=== PATIENT | male | born 1995 | race American Indian/Alaskan Native ===

== ENCOUNTER 2021-03-04 10:29 | Emergency (ER) | payer SELFPAY ==
[2021-03-04 11:00] VITALS: BP 154/96
[2021-03-04] MEDS ORDERED: KETOROLAC 30 MG/1 ML INJ IV ONE (11:43)
--- NOTE | 2021-03-04 11:44 | Emergency Department Report ---
ED General Adult HPI - General Chief complaint: Headache Stated complaint: LOW BACK PAIN Time Seen by Provider: 03/04/21 11:37 Source: patient Mode of arrival: Stretcher Limitations: No Limitations - History of Present Illness Initial comments: 25-year-old -[place] male with a past medical history of asthma presents to the ER today with complaints of generalized body aches but worse in his lower back and headache. Patient states that his symptoms started last night. Patient states that he has been having generalized body aches but worse in his lower back and is also having a headache with it. He states that the lower back pain radiates down into his right thigh, but he is also having pain in his lower abdomen and having hematuria, dysuria and urinary frequency. He states that he did have subjective fever last night and last night he does have multiple episodes of coughing but no cough today. He denies any particular injury to his back. He denies any strenuous activity. He denies any URI symptoms, wheezing, chest pain or shortness of breath. He denies any lower extremity numbness, tingling, bowel or bladder incontinence. He denies any vomiting or diarrhea. He denies any known COVID-19 contacts or any other ill contacts or recent travel. Patient states that he drinks socially. He does admit to tobacco and marijuana use but denies any other illicit drug use. MD Complaint: Generalized body aches/low back pain/hematuria -: Last night - Related Data Previous Rx's Medication Instructions Recorded Last Taken Type Ketorolac [Toradol] 10 mg PO Q6H PRN #20 tablet 03/04/21 Unknown Rx methOCARBAMOL [Robaxin TAB] 500 mg PO Q6H PRN #30 tablet 03/04/21 Unknown Rx Allergies Allergy/AdvReac Type Severity Reaction Status Date / Time No Known Allergies Allergy Unverified 03/04/21 10:52 ED Review of Systems ROS: Stated complaint: LOW BACK PAIN Other details as noted in HPI Comment: All other systems reviewed and negative Constitutional: denies: chills, fever Eyes: denies: eye pain, eye discharge, vision change ENT: denies: ear pain, throat pain, dental pain, hearing loss, epistaxis, congestion Respiratory: cough. denies: shortness of breath, SOB with exertion, SOB at rest, wheezing Cardiovascular: denies: chest pain, palpitations, dyspnea on exertion, orthopnea, edema, syncope, paroxysmal nocturnal dyspnea Gastrointestinal: abdominal pain. denies: nausea, vomiting, diarrhea, constipation, hematemesis, hematochezia Genitourinary: dysuria, frequency, hematuria Musculoskeletal: back pain. denies: joint swelling, arthralgia, myalgia Skin: denies: rash, lesions, change in color, change in hair/nails, pruritus Neurological: headache. denies: weakness, numbness, paresthesias, confusion, abnormal gait, vertigo Psychiatric: denies: anxiety, depression, auditory hallucinations, visual hallucinations, homicidal thoughts, suicidal thoughts Hematological/Lymphatic: denies: easy bleeding, easy bruising, swollen glands ED Past Medical Hx - Past Medical History Previous Medical History?: Yes Hx Asthma: Yes - Surgical History Past Surgical History?: No - Medications Home Medications: Home Medications Medication Instructions Recorded Confirmed Last Taken Type Ketorolac [Toradol] 10 mg PO Q6H PRN #20 tablet 03/04/21 Unknown Rx methOCARBAMOL [Robaxin TAB] 500 mg PO Q6H PRN #30 tablet 03/04/21 Unknown Rx ED Physical Exam - General Limitations: No Limitations General appearance: alert, in distress (Patient appears uncomfortable secondary to pain and restless in triage) - Head Head exam: Present: atraumatic, normocephalic, normal inspection - Eye Eye exam: Present: normal appearance, PERRL, EOMI Pupils: Present: normal accommodation - ENT ENT exam: Present: normal exam, mucous membranes moist - Neck Neck exam: Present: normal inspection, full ROM - Respiratory Respiratory exam: Present: normal lung sounds bilaterally. Absent: respiratory distress, wheezes, rales, rhonchi - Cardiovascular Cardiovascular Exam: Present: regular rate, normal rhythm, normal heart sounds - GI/Abdominal GI/Abdominal exam: Present: soft. Absent: distended, tenderness, guarding, rebound - Extremities Exam Extremities exam: Present: normal inspection, tenderness (Mild tenderness to palpation to right thigh area). Absent: calf tenderness - Back Exam Back exam: Present: normal inspection, CVA tenderness (R), paraspinal tenderness (Mild bilateral paraspinal muscle tenderness lower lumbar area) - Neurological Exam Neurological exam: Present: alert, oriented X3, CN II-XII intact, normal gait - Psychiatric Psychiatric exam: Present: normal affect, normal mood - Skin Skin exam: Present: intact ED Course Vital Signs 03/04/21 10:59 Temperature 99.6 F Pulse Rate 80 Respiratory 20 Rate Blood Pressure 154/96 [Right] O2 Sat by Pulse 100 Oximetry ED Medical Decision Making - Lab Data Result diagrams: 03/04/21 12:16 03/04/21 12:16 - Radiology Data Radiology results: report reviewed Patient: BHAVNA FREY MR#: [id number] : 1995 Acct:[id number] Age/Sex: 25 / M ADM Date: 03/04/21 Loc: ED Attending Dr: Ordering Physician: RICK PADILLA Date of Service: 03/04/21 Procedure(s): XR chest routine 2V Accession Number(s): [id number] cc: RICK PADILLA Fluoro Time In Minutes: CHEST 2 VIEWS INDICATION / CLINICAL INFORMATION: Cough/body aches. COMPARISON: None available. FINDINGS: SUPPORT DEVICES: None. HEART / MEDIASTINUM: No significant abnormality. LUNGS / PLEURA: No significant pulmonary or pleural abnormality. No pneumothorax. ADDITIONAL FINDINGS: No significant additional findings. IMPRESSION: 1. No acute findings. Signer Name: Hima Jesus MD Signed: 03/04/2021 12:10 PM Workstation Name: [id number] Transcribed By: JUAN A Dictated By: Hima Jesus MD Electronically Authenticated By: Hima Jesus MD Signed Date/Time: 03/04/21 1210 DD/ 1210 TD/TT: Patient: BHAVNA FREY MR#: [id number] : 1995 Acct:[id number] Age/Sex: 25 / M ADM Date: 03/04/21 Loc: ED Attending Dr: Ordering Physician: RICK PADILLA Date of Service: 03/04/21 Procedure(s): CT abdomen pelvis wo con Accession Number(s): [id number] cc: RICK PADILLA CT ABDOMEN AND PELVIS WITHOUT CONTRAST INDICATION / CLINICAL INFORMATION: back pain/hematuria. TECHNIQUE: Axial CT images were obtained through the abdomen and pelvis without IV contrast. All CT scans at this location are performed using CT dose reduction for ALARA by means of automated exposure control. COMPARISON: None available. FINDINGS: LOWER CHEST: No significant abnormality. LIVER: No significant abnormality. GALLBLADDER: No significant abnormality. BILE DUCTS: No significant abnormality. PANCREAS: No significant abnormality. SPLEEN: No significant abnormality. ADRENALS: No significant abnormality. RIGHT KIDNEY / URETER: No significant abnormality. LEFT KIDNEY / URETER: No significant abnormality. STOMACH / SMALL BOWEL: No significant abnormality. COLON: No significant abnormality. APPENDIX: No significant abnormality. PERITONEUM: No free fluid. No free air. No fluid collection. LYMPH NODES: No significant adenopathy. VASCULAR STRUCTURES: No significant abnormality. URINARY BLADDER: No significant abnormality. REPRODUCTIVE ORGANS: No significant abnormality. ADDITIONAL FINDINGS: None. SKELETAL SYSTEM: No significant abnormality. IMPRESSION: Negative for obstruction or localized inflammation. Signer Name: Karlos Sexton MD Signed: 03/04/2021 12:27 PM Workstation Name: [id number] Transcribed By: GERARDO Dictated By: Karlos Sexton MD Electronically Authenticated By: Karlos Sexton MD Signed Date/Time: 03/04/21 122 DD/ 1223 TD/TT: - Medical Decision Making Labs including CT abdomen pelvis noncontrast, and chest x-ray [id number] today shows no acute abnormalities. He does not appear to be in any acute pain or respiratory distress. He currently not toxic or ill-appearing and he appears hydrated. He is mentally stable and is neurologically intact. Discussed lab and imaging results with patient. This time his work-up does not show serious UTI, kidney stone, pneumonia, meningitis, cord compression syndrome, sepsis or any other acute emergent conditions warranting additional testing, admission, specialist consult or transfer at this time. I did recommend to patient that he get an outpatient Covid test as some of his symptoms symptoms could be related to Covid. Patient expressed understanding of all instructions and agree with plan. Patient was stable at time of discharge. Critical care attestation.: If time is entered above; I have spent that time in minutes in the direct care of this critically ill patient, excluding procedure time. ED Disposition Clinical Impression: Low back pain, Headache, Viral syndrome Disposition: DC-01 TO HOME OR SELFCARE Is pt being admited?: No Does the pt Need Aspirin: No Condition: Stable Instructions: Acute Back Pain, Adult, Viral Illness, Adult, General Headache Without Cause, [id number] Additional Instructions: I recommend that you take the Toradol and the muscle relaxant as prescribed. I also recommend that you get an outpatient COVID-19 test. You may want to quarantine until you get the results of your COVID-19 test. Drink lots of flui ds. Recommend that you take a daily multivitamin which includes vitamin C vitamin D and zinc. Follow-up closely with your primary care doctor. Return to the ER if your symptoms changes or worsens in any way. Prescriptions: methOCARBAMOL [Robaxin TAB] 500 mg PO Q6H PRN #30 tablet PRN Reason: Pain Ketorolac [Toradol] 10 mg PO Q6H PRN #20 tablet PRN Reason: Pain Referrals: [facility] [Provider Group] - 3-5 Days Forms: Work/School Release Form(ED) Time of Disposition: 15:10
--- NOTE | 2021-03-04 12:15 | XRay Report ---
CHEST 2 VIEWS INDICATION / CLINICAL INFORMATION: Cough/body aches. COMPARISON: None available. FINDINGS: SUPPORT DEVICES: None. HEART / MEDIASTINUM: No significant abnormality. LUNGS / PLEURA: No significant pulmonary or pleural abnormality. No pneumothorax. ADDITIONAL FINDINGS: No significant additional findings. IMPRESSION: 1. No acute findings. Signer Name: Hima Jesus MD Signed: 03/04/2021 12:10 PM Workstation Name: [id number]
--- NOTE | 2021-03-04 12:31 | Cat Scan Report ---
CT ABDOMEN AND PELVIS WITHOUT CONTRAST INDICATION / CLINICAL INFORMATION: back pain/hematuria. TECHNIQUE: Axial CT images were obtained through the abdomen and pelvis without IV contrast. All CT scans at this location are performed using CT dose reduction for ALARA by means of automated exposure control. COMPARISON: None available. FINDINGS: LOWER CHEST: No significant abnormality. LIVER: No significant abnormality. GALLBLADDER: No significant abnormality. BILE DUCTS: No significant abnormality. PANCREAS: No significant abnormality. SPLEEN: No significant abnormality. ADRENALS: No significant abnormality. RIGHT KIDNEY / URETER: No significant abnormality. LEFT KIDNEY / URETER: No significant abnormality. STOMACH / SMALL BOWEL: No significant abnormality. COLON: No significant abnormality. APPENDIX: No significant abnormality. PERITONEUM: No free fluid. No free air. No fluid collection. LYMPH NODES: No significant adenopathy. VASCULAR STRUCTURES: No significant abnormality. URINARY BLADDER: No significant abnormality. REPRODUCTIVE ORGANS: No significant abnormality. ADDITIONAL FINDINGS: None. SKELETAL SYSTEM: No significant abnormality. IMPRESSION: Negative for obstruction or localized inflammation. Signer Name: Karlos Sexton MD Signed: 03/04/2021 12:27 PM Workstation Name: [id number]
[2021-03-04 12:41] LABS: Hematocrit 44.2 % (35.5-45.6); Mean Corpuscular HGB Conc 34 % (32-34); Mean Corpuscular Volume 93 fl (84-94); Platelet Count 186 K/mm3 (140-440); Red Blood Count 4.74 M/mm3 (3.65-5.03); Red Cell Distribution Width 13.6 % (13.2-15.2)
[2021-03-04 13:01] LABS: Alanine Aminotransferase 19 units/L (7-56); Albumin 4.9 g/dL (3.9-5); BUN/Creatinine Ratio 6; Blood Urea Nitrogen 8 mg/dL (9-20); Hemolysis Index 6
[2021-03-04 14:39] LABS: Mucus,Urine FEW /HPF
[2021-03-04 14:47] LABS: Bilirubin,Urine NEG (Negative); Blood,Urine NEG (Negative); Color,Urine Yellow (Yellow); Protein,Urine <15 mg/dL mg/dL (Negative)
[2021-03-04 16:52] LABS: Total Cells Counted 100
[2021-03-04 16:53] LABS: RBC Morphology Normal
== END 2021-03-04 15:56 | disposition home or self-care (01) ==
LOC: ED 10:29
DX: M54.5 Low back pain (principal); B34.9 Viral infection, unspecified; R51.9 Headache, unspecified; J45.909 Unspecified asthma, uncomplicated; Z79.899 Other long term (current) drug therapy
CPT/HCPCS: 36415; 71046; 74176; 80053; 81001; 83690; 85007; 85025; 96374; 99285; J1885